=== PATIENT | female | born 1965 | race Caucasian/White ===

== ENCOUNTER 2018-12-07 22:42 | Emergency (ER) | payer SELFPAY ==
[~2018-12-07] VITALS: Ht 149.9 cm; Wt 47.2 kg
[2018-12-07 22:47] VITALS: Ht 149.9 cm; Wt 47.2 kg
[2018-12-08 00:05] VITALS: BP 124/71
== END 2018-12-08 00:05 | disposition home or self-care (01) ==
LOC: ED 22:42
DX: B37.9 Candidiasis, unspecified (principal); K08.89 Other specified disorders of teeth and supporting structures
CPT/HCPCS: J1885

== ENCOUNTER 2018-12-09 12:52 | Emergency (ER) | payer SELFPAY ==
[~2018-12-09] VITALS: Ht 149.9 cm; Wt 47.2 kg
[2018-12-09 13:06] VITALS: Ht 149.9 cm; Wt 47.2 kg
[2018-12-09 15:50] VITALS: BP 116/72
== END 2018-12-09 15:50 | disposition home or self-care (01) ==
LOC: ED 12:52
DX: M27.3 Alveolitis of jaws (principal)
CPT/HCPCS: J7030